=== PATIENT | female | born 1965 | race Caucasian/White ===

== ENCOUNTER → 2024-03-23 10:37 | Outpatient (REF) | payer OTHER, SELFPAY | LOC: HWWDC 10:37 | PROVIDERS: ATTENDING PHYSICIAN Family Medicine | DX: Z12.31 Encounter for screening mammogram for malignant neoplasm of breast (principal) | CPT/HCPCS: 77063; 77067 ==

== ENCOUNTER 2024-05-25 11:11 | Emergency (ER) | payer OTHER, SELFPAY ==
[2024-05-25 11:32] VITALS: BP 129/81
[2024-05-25 11:37] VITALS: BMI 23.9
--- NOTE | 2024-05-25 12:16 | ED.SKININJ ---
HPI-Injury
General
Chief Complaint: Bite
Source: patient
Time Seen by Provider: 05/25/24 11:53
History of Present Illness-Injury
Initial Injury comments:
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 Raccoon ended up testing positive for rabies. Patient has undergone
preexposure rabies prophylaxis as well as postexposure vaccination in the past. She is without any other concerns at this time.
Past History
Past History
ED Past Medical History: None
ED Past Surgical History: and Gynecological (Hysterectomy, bladder sling/lift.)
Social History
Tobacco: Smoker (Occasional cigarette smoker)
Alcohol: Occasional
Drug: None
Personal: Single
Living: with family
Employment: Employed
Family History
Family History: Hypertension; Negative Sudden
Review of Systems
Review of Systems
All Other Systems: ROS reviewed and negative except as documented in HPI and ROS
Phy Exam
Physical Exam
Physical Exam:
GENERAL: Alert , in no apparent distress
EYE: conjunctiva clear
Head: Normocephalic atraumatic
NECK: Supple,
ENT: mmm.
LUNGS: no acute respiratory distress
NEUROLOGICAL: Alert and oriented
SKIN: Warm and dry, skin intact.
MUSCULOSKELETAL: well perfused.
PSYCH: Normal and appropriate interaction.
Course
Orders/Labs/Results
Orders:
Orders
05/25/24 12:15
Rabies Vaccine ([facility])/Pf [Rabavert Rabies Vacc W-Diluent] 2.5 unit IM .ONCE ONE
Vital Signs
Initial and Last Documented VS:
Initial Vital Signs
Temp Pulse Resp BP Pulse Ox
97.9 F 56 16 129/81 99
05/25/24 11:32 05/25/24 11:32 05/25/24 11:32 05/25/24 11:32 05/25/24 11:32
Last Documented Vital Signs
Temp Pulse Resp BP Pulse Ox
97.9 F 56 16 129/81 99
05/25/24 11:32 05/25/24 11:32 05/25/24 11:32 05/25/24 11:32 05/25/24 11:32
MDM/Problems Addressed
MDM/Problems Addressed:
Patient presenting to the ER for rabies prophylaxis after having a confirmed positive exposure and being by a rabid raccoon. Patient has already been treated with preexposure prophylaxis as well as been treated for postexposure prophylaxis as well.
She will receive the first rabies IM vaccine today and return to the ER in 3 days for the second vaccination. Patient expressed understanding. Otherwise stable for discharge home.
*Pulse Oximetry
Patient hypoxic: no
*Critical Care Note
Total Time (30-74mins, 75-104mins- exclusive of procedures): Not Applicable
ED Attending Note
-
Portions of this chart may have been created with voice recognition software.� Occasional wrong word or��sound alike� substitutions may have occurred due to the inherent limitations of voice recognition software.
Discharge Plan
Departure
Patient Disposition: Home (Routine Discharge)
Date of Disposition: 05/25/24
Time of Disposition: 12:16
Patient with high blood pressure during this ER visit?: No
Discharge Problem:
Encounter for vaccination
Instructions: Rabies
Prescriptions:
No Action
hydrocodone-acetaminophen 1 TABLET tablet
1 tab PO Q4HPRN PRN (Reason: pain) Qty: 10 0RF
ibuprofen 600 MG tablet
600 mg PO Q6 PRN (Reason: pain) Qty: 20 0RF
Referrals:
Isabel Chand DO [Family Provider] -
Activity Restrictions/Additional Instructions:
Return to the ER on 05/28 for 2nd dose of the rabies vaccine
Interventions
Interventions:
*Risk Screen - Suicide Last Done: 05/25/24 11:34
*General Assessment Last Done: 05/25/24 11:46
*Neglect/Abuse Screening Last Done: 05/25/24 11:34
*ED COVID-19 Vaccine History Last Done: 05/25/24 11:46
*Nursing Disposition Last Done: 05/25/24 12:33
ED-Skin Assessment Last Done: 05/25/24 11:46
Discharge Date and Time
Discharge Date/Time: 05/25/24 12:34
Print Language: CYMRAES
[2024-05-25] MEDS: RABAVERT RABIES VACC W-DILUENT 2.5 UNIT IM (12:26)
== END 2024-05-25 12:34 | disposition home or self-care (01) ==
LOC: EMR 11:11
PROVIDERS: EMERGENCY PHYSICIAN Emergency Medicine; FAMILY PHYSICIAN Family Medicine
DX: Z20.3 Contact with and (suspected) exposure to rabies (principal); Z23 Encounter for immunization; F17.210 Nicotine dependence, cigarettes, uncomplicated; Z82.49 Family history of ischemic heart disease and other diseases of the circulatory system; Z90.710 Acquired absence of both cervix and uterus
CPT/HCPCS: 99281; 90471; 90675

== ENCOUNTER 2024-05-29 14:25 | Outpatient (RCR) | payer OTHER, SELFPAY ==
[2024-05-29 14:38] VITALS: BP 159/74
[2024-05-29] MEDS: RABAVERT RABIES VACC W-DILUENT 2.5 UNIT IM (14:50)
== END 2024-05-30 08:47 | disposition home or self-care (01) ==
LOC: OID 14:25
PROVIDERS: ATTENDING PHYSICIAN Emergency Medicine
DX: Z20.3 Contact with and (suspected) exposure to rabies (principal); Z23 Encounter for immunization
CPT/HCPCS: 90471; 90675

== ENCOUNTER → 2025-03-28 12:32 | Outpatient (REF) | payer OTHER, SELFPAY | LOC: HWRAD 12:32 | PROVIDERS: ATTENDING PHYSICIAN Physician Assistant Medical | DX: M25.522 Pain in left elbow (principal) | CPT/HCPCS: 73080 ==

== ENCOUNTER → 2025-05-08 10:30 | Outpatient (REF) | payer OTHER, SELFPAY | LOC: HWWDC 10:30 | PROVIDERS: ATTENDING PHYSICIAN Nurse Practitioner Adult Health; FAMILY PHYSICIAN Family Medicine | DX: Z12.31 Encounter for screening mammogram for malignant neoplasm of breast (principal) | CPT/HCPCS: 77063; 77067 ==